=== PATIENT | male | born 2000 | race Hispanic/Latino ===

== ENCOUNTER 2022-06-22 14:09 | Emergency (ER) | payer OTHER ==
[~2022-06-22] VITALS: Ht 160 cm; Wt 104.3 kg
[2022-06-22 14:11] VITALS: BP 127/77
[2022-06-22] MEDS ORDERED: HYDR50CA50 PO (14:18)
== END 2022-06-22 15:02 | disposition home or self-care (01) ==
LOC: EDH 14:09
DX: F41.9 Anxiety disorder, unspecified (principal)